=== PATIENT | female | born 1955 | race Caucasian/White ===

== ENCOUNTER 2016-05-29 20:48 | Emergency (ER) | payer MEDICARE, OTHER ==
[~2016-05-29] VITALS: Ht 167.6 cm; Wt 90.7 kg
[~2016-05-29 20:48] MED LIST: BUSP5TAB PO; CITA20TA19 GT; CLOP75TA2 PO; METO100T PO; ROSU10TA PO; TRAZ150T75 PO
[2016-05-29] MEDS ORDERED: ONDANSETRON HCL/PF 4 MG/2 ML VIAL ONE (21:15)
[2016-05-29] MEDS ORDERED: MORPHINE SULFATE INJ 4 MG/ML DISP.SYRIN ONE (21:15)
[2016-05-29] MEDS ORDERED: KETOROLAC TROMETHAMINE INJ 30 MG/ML VIAL ONE (21:15)
[2016-05-29] MEDS ORDERED: IV SET PRIMARY 1 EA INFUS.SET MC ONE (21:15)
[2016-05-29] MEDS ORDERED: IV NS 0.9% 1,000 ML ONE (21:15)
[2016-05-29 21:17] LABS: BASOPHILS # (AUTO) 0.1 /CMM (0.0-0.2); BASOPHILS % (AUTO) 0.7 % (0.0-2.0); DIFF TOTAL % 100 %; EOSINOPHILS # (AUTO) 0.1 /CMM (0.0-0.7); EOSINOPHILS % (AUTO) 1.2 % (0.0-6.0); HEMATOCRIT 37 % (33-45); HEMOGLOBIN 12.6 g/dL (11.5-14.8); LYMPHOCYTES # (AUTO) 3.3 /CMM (0.8-4.8); LYMPHOCYTES % (AUTO) 44.1 % (20.0-44.0); MEAN CORPUSCULAR HEMOGLOBIN 30 PG (26.0-33.0); MEAN CORPUSCULAR HGB CONC 34 g/dl (31.0-36.0); MEAN CORPUSCULAR VOLUME 86 fL (82-100); MONOCYTES # (AUTO) 0.6 /CMM (0.1-1.30); MONOCYTES % (AUTO) 8.3 % (2.0-12.0); NEUTROPHILS # (AUTO) 3.4 /CMM (1.8-8.9); NEUTROPHILS % (AUTO) 45.7 % (43.0-81.0); PLATELET COUNT (AUTO) 323 /CMM (150-450); RED BLOOD CELL COUNT(AUTO) 4.26 MIL/uL (4.0-5.2); WHITE BLOOD COUNT (AUTO) 7.5 K/uL (4.3-11.0)
[2016-05-29 21:19] LABS: KETONES,URINE Negative (NEGATIVE); LEUKOCYTE ESTERASE ,URINE Negative (NEGATIVE)
[2016-05-29 21:24] LABS: ADD UA MICROSCOPIC YES
[2016-05-29] MEDS ORDERED: KETOROLAC TROMETHAMINE INJ 30 MG/ML VIAL IV ONE (21:30)
[2016-05-29] MEDS ORDERED: IV NS 0.9% 1,000 ML BAG IV ONE (21:30)
[2016-05-29] MEDS ORDERED: ONDANSETRON HCL/PF 4 MG/2 ML VIAL IVP ONE (21:30)
[2016-05-29] MEDS ORDERED: MORPHINE SULFATE INJ 2 MG/ML DISP.SYRIN IV ONE (21:30)
[2016-05-29 21:34] LABS: ADD URINE CULTURE NO; WBC,URINE 0-2 /HPF (0-3)
[2016-05-29 21:38] LABS: LACTIC ACID 1.3 mmol/L (0.4-2.0)
[2016-05-29 21:46] LABS: ALBUMIN 3.9 g/dL (3.4-5.0); BILIRUBIN,DIRECT 0.1 mg/dL (0.0-0.2); BILIRUBIN,TOTAL 0.3 mg/dL (0.2-1.0); CREATININE 0.9 mg/dL (0.6-1.3); INDIRECT BILIRUBIN 0.2 mg/dL (0.0-1.1); POTASSIUM 4.3 mmol/L (3.5-5.1); TOTAL PROTEIN, SERUM 7.7 g/dL (6.4-8.2)
[2016-05-29 21:58] LABS: CALCIUM, SERUM 10.1 mg/dL (8.5-10.1)
[2016-05-29 22:54] VITALS: BP 137/73
== END 2016-05-29 23:01 | disposition home or self-care (01) ==
LOC: ER 20:48
DX: M54.9 Dorsalgia, unspecified (principal); I10 Essential (primary) hypertension; F41.9 Anxiety disorder, unspecified; F32.9 Major depressive disorder, single episode, unspecified; Z90.89 Acquired absence of other organs; Z90.49 Acquired absence of other specified parts of digestive tract; Z86.73 Personal history of transient ischemic attack (TIA), and cerebral infarction without residual deficits
CPT/HCPCS: 36415; 80048-TC; 80076-TC; 81000-TC; 83605-TC; 83690-TC; 85025-TC; A4606; J1885; J2270; J2405; J7030; Z7610

== ENCOUNTER 2016-10-10 14:45 | Emergency (ER) | payer MEDICARE, OTHER ==
[~2016-10-10] VITALS: Ht 165.1 cm; Wt 90.7 kg
--- NOTE | 2016-10-10 15:18 | NUR ---
PATIENT BIB RA C/O SEVERE HEADACHE, 12/31. PATIENTS BLOOD PRESSURE STABLE. BREATHING EVEN AND UNLABORED. MD AT BEDSIDE. SAFETY AND COMFORT MEASURES PROVIDED. AWAITING MD ORDERS.
[2016-10-10] MEDS ORDERED: METOCLOPRAMIDE HCL 10 MG/2 ML VIAL IV ONE (15:30)
[2016-10-10] MEDS ORDERED: METOCLOPRAMIDE HCL 10 MG/2 ML VIAL ONE (15:37)
--- NOTE | 2016-10-10 15:39 | NUR ---
NEW IV STARTED RIGHT HAND, 20 GAUGE. BLOOD DRAWN, SENT TO LAB.
[2016-10-10 15:44] LABS: BASOPHILS % (AUTO) 0.4 % (0.0-2.0); EOSINOPHILS # (AUTO) 0.1 /CMM (0.0-0.7); EOSINOPHILS % (AUTO) 1.5 % (0.0-6.0); HEMATOCRIT 37 % (33-45); HEMOGLOBIN 12.4 g/dL (11.5-14.8); LYMPHOCYTES # (AUTO) 2.3 /CMM (0.8-4.8); LYMPHOCYTES % (AUTO) 35.2 % (20.0-44.0); MEAN CORPUSCULAR HEMOGLOBIN 29 PG (26.0-33.0); MEAN CORPUSCULAR HGB CONC 33 g/dl (31.0-36.0); MEAN CORPUSCULAR VOLUME 88 fL (82-100); MONOCYTES # (AUTO) 0.4 /CMM (0.1-1.30); MONOCYTES % (AUTO) 6.3 % (2.0-12.0); NEUTROPHILS # (AUTO) 3.6 /CMM (1.8-8.9); NEUTROPHILS % (AUTO) 56.6 % (43.0-81.0); PLATELET COUNT (AUTO) 322 /CMM (150-450); RDW COEFFICIENT OF VARIATION 13.3 (11.5-15.0); RED BLOOD CELL COUNT(AUTO) 4.21 MIL/uL (4.0-5.2); WHITE BLOOD COUNT (AUTO) 6.4 K/uL (4.3-11.0)
--- NOTE | 2016-10-10 15:45 | NUR ---
PATIENT MEDICATED PER MD ORDERS. TAKEN TO CT SCAN VIA STRETCHER. REMAINS STABLE.
[2016-10-10 15:52] LABS: CALCIUM, SERUM 9.6 mg/dL (8.5-10.1); CARBON DIOXIDE 26 mmol/L (21-32); CHLORIDE 105 mmol/L (98-107); CREATININE 0.7 mg/dL (0.6-1.3); GLUCOSE 93 mg/dL (74-106); POTASSIUM 4.2 mmol/L (3.5-5.1); SODIUM SERUM 140 mmol/L (136-145); UREA NITROGEN, BLOOD 12 mg/dL (7-18)
[2016-10-10 15:58] LABS: ALANINE AMINOTRANSFERASE 24 U/L (12-78); ALBUMIN 3.6 g/dL (3.4-5.0); ALKALINE PHOSPHATASE 144 U/L (46-116); ASPARTATE AMINOTRANSFERASE 19 U/L (15-37); BILIRUBIN,DIRECT 0.1 mg/dL (0.0-0.2); BILIRUBIN,TOTAL 0.5 mg/dL (0.2-1.0); TOTAL PROTEIN, SERUM 7.4 g/dL (6.4-8.2)
[2016-10-10 16:03] LABS: TROPONIN I < 0.017 ng/mL (0.00-0.056)
[2016-10-10 17:11] VITALS: BP 150/73
--- NOTE | 2016-10-10 17:15 | NUR ---
Patient discharged to home in stable condition. Written and verbal after care instructions given. Patient verbalizes understanding of instruction. IV removed. Catheter intact and site benign. Pressure and 4x4 applied to site. No bleeding noted. ambulatory with steady gait. no further complaints.
== END 2016-10-10 17:15 | disposition home or self-care (01) ==
LOC: ER 14:46
DX: R51 Headache (principal); R42 Dizziness and giddiness; I10 Essential (primary) hypertension; G45.9 Transient cerebral ischemic attack, unspecified; F32.9 Major depressive disorder, single episode, unspecified; F41.9 Anxiety disorder, unspecified; Z90.49 Acquired absence of other specified parts of digestive tract
CPT/HCPCS: 36415; 70450-TC; 80048-TC; 80076-TC; 84484-TC; 85025-TC; A4606; J2765; Z7610

== ENCOUNTER 2017-01-03 20:45 | Emergency (ER) | payer MEDICARE, OTHER ==
[~2017-01-03] VITALS: Ht 154.9 cm; Wt 59.0 kg
--- NOTE | 2017-01-03 21:00 | NUR ---
TO BED 6 A 61 YO FEMALE BIBSELF C/O RIGHT BERMUDEZ PAIN X 5 HOURS S/P FALLING, -LOC. POSITIVE DISTAL CMS. VSS. NAD NOTED. BREATHING EVEN AND UNLABORED. NONDIAPHORETIC. SAFETY AND COMFORT MEASURES IN PLACE. AWAITING FOR ER MD DOVER.
--- NOTE | 2017-01-03 21:03 | NUR ---
DR GOODEN AT BEDSIDE TO EVAL.
[2017-01-03] MEDS ORDERED: HYDROCODONE/APAP 5/325MG 1 EACH TABLET ONE (21:09)
[2017-01-03] MEDS ORDERED: ONDANSETRON 4 MG TAB.RAPDIS ONE (21:09)
--- NOTE | 2017-01-03 21:11 | NUR ---
medicated patient as ordered by Dr Duran.
--- NOTE | 2017-01-03 21:13 | NUR ---
xr tech at bedside.
[2017-01-03] MEDS ORDERED: HYDROCODONE/APAP 5/325MG 1 EACH TABLET PO ONE (21:30)
[2017-01-03] MEDS ORDERED: ONDANSETRON 4 MG TAB.RAPDIS SL ONE (21:30)
--- NOTE | 2017-01-03 21:41 | NUR ---
Patient discharged to home in stable condition. Written and verbal after care instructions given. Patient verbalizes understanding of instruction. Patient was ambulatory with assistance of cane. She said she is going to be picked up by son. Instructed not to drive. No further complaints.
[2017-01-03 21:43] VITALS: BP 132/78
== END 2017-01-03 21:43 | disposition home or self-care (01) ==
LOC: ER 20:50
DX: S80.11XA Contusion of right lower leg, initial encounter (principal); F32.9 Major depressive disorder, single episode, unspecified; I10 Essential (primary) hypertension; Z90.49 Acquired absence of other specified parts of digestive tract; F41.9 Anxiety disorder, unspecified; Z86.73 Personal history of transient ischemic attack (TIA), and cerebral infarction without residual deficits; W01.0XXA Fall on same level from slipping, tripping and stumbling without subsequent striking against object, initial encounter; Y92.89 Other specified places as the place of occurrence of the external cause; Y93.89 Activity, other specified; Y99.8 Other external cause status
CPT/HCPCS: 73590; 99284; A4606; Q0162; Z7610

== ENCOUNTER 2017-04-16 19:42 | Emergency (ER) | payer MEDICARE, OTHER ==
[~2017-04-16] VITALS: Ht 167.6 cm; Wt 92.5 kg
[~2017-04-16 19:42] MED LIST changes: +CLOP75TA15 PO; -CLOP75TA2 PO
--- NOTE | 2017-04-16 20:13 | NUR ---
PT RECEIVED FROM HOME VIA SON C/O SIZZY/ HIGH BLOOD RPESSURE/ HEARING IMPAIRED "SOUNDS LIKE I AM MOVING IN THE AIR". NO SOB NOTED WITH NO PAIN. A/O X4 ABLE TO MAKE NEEDS KNOWN. WILL CONTINUE TO MONITOR FRO ANY CHNAGES
--- NOTE | 2017-04-16 20:26 | NUR ---
Acosta reinoso in ED - 04/16/17 at 2036 by KEN KATY LOZA AT [facility] FOR EVAL.
--- NOTE | 2017-04-16 20:29 | NUR ---
DR. LOZA AT BEDSIDE
--- NOTE | 2017-04-16 20:34 | NUR ---
DR. QIU AT BEDSIDE FOR EVAL.
--- NOTE | 2017-04-16 20:35 | NUR ---
EKG DONE AT BEDSIDE
--- NOTE | 2017-04-16 20:40 | NUR ---
LAB AT BEDSIDE FOR BLOOD DRAW.
[2017-04-16] MEDS ORDERED: ACETAMINOPHEN ES 500 MG TABLET ONE (20:57)
[2017-04-16] MEDS ORDERED: ACETAMINOPHEN 325 MG TABLET PO ONE (21:00)
--- NOTE | 2017-04-16 21:00 | NUR ---
RADIOLOGY AT BEDSIDE FOR CXR
[2017-04-16 21:10] LABS: BASOPHILS # (AUTO) 0.1 /CMM (0.0-0.2); BASOPHILS % (AUTO) 0.6 % (0.0-2.0); EOSINOPHILS # (AUTO) 0.1 /CMM (0.0-0.7); EOSINOPHILS % (AUTO) 0.7 % (0.0-6.0); HEMATOCRIT 40 % (33-45); HEMOGLOBIN 13.6 g/dL (11.5-14.8); LYMPHOCYTES # (AUTO) 3.6 /CMM (0.8-4.8); LYMPHOCYTES % (AUTO) 41.1 % (20.0-44.0); MEAN CORPUSCULAR HEMOGLOBIN 30 PG (26.0-33.0); MEAN CORPUSCULAR HGB CONC 34 g/dl (31.0-36.0); MEAN CORPUSCULAR VOLUME 88 fL (82-100); MONOCYTES # (AUTO) 0.8 /CMM (0.1-1.30); MONOCYTES % (AUTO) 8.7 % (2.0-12.0); NEUTROPHILS # (AUTO) 4.1 /CMM (1.8-8.9); NEUTROPHILS % (AUTO) 48.9 % (43.0-81.0); PLATELET COUNT (AUTO) 378 /CMM (150-450); RDW COEFFICIENT OF VARIATION 12.4 (11.5-15.0); RED BLOOD CELL COUNT(AUTO) 4.56 MIL/uL (4.0-5.2); WHITE BLOOD COUNT (AUTO) 8.7 K/uL (4.3-11.0)
--- NOTE | 2017-04-16 21:23 | NUR ---
FURNISHINGS CONSERVATOR BACK IN ROOM FOR 2ND ATTEMPT
[2017-04-16 21:25] LABS: CALCIUM, SERUM 10.7 mg/dL (8.5-10.1); CARBON DIOXIDE 28 mmol/L (21-32); CHLORIDE 104 mmol/L (98-107); CREATININE 0.7 mg/dL (0.6-1.3); GLUCOSE 105 mg/dL (74-106); POTASSIUM 4.3 mmol/L (3.5-5.1); SODIUM SERUM 140 mmol/L (136-145); UREA NITROGEN, BLOOD 20 mg/dL (7-18)
[2017-04-16 21:29] LABS: TROPONIN I < 0.017 ng/mL (0.00-0.056)
--- NOTE | 2017-04-16 21:54 | NUR ---
KATY LOZA AT BEDSIDE SPEAKING TO PT REGARDING RESULTS
[2017-04-16 22:08] LABS: INR 0.88 (0.87-1.13); PROTHROMBIN TIME 9.1 SECS (9.5-12.7)
--- NOTE | 2017-04-16 22:09 | NUR ---
RADIOLOGY AT BEDSIDE TO TAKE PT TO CT SCAN
--- NOTE | 2017-04-16 22:17 | NUR ---
PT BACK FROM CT SCAN
--- NOTE | 2017-04-17 00:03 | NUR ---
KATY LOZA AT BEDSIDE SPEAKING TO PT REGARDING RESULTS
--- NOTE | 2017-04-17 00:11 | NUR ---
D/C PAPERWORK SIGNED AND EXPLAINED.
[2017-04-17 00:12] VITALS: BP 132/71
== END 2017-04-17 00:13 | disposition home or self-care (01) ==
LOC: ER 19:43
DX: R42 Dizziness and giddiness (principal); I10 Essential (primary) hypertension; F41.9 Anxiety disorder, unspecified; F32.9 Major depressive disorder, single episode, unspecified; Z86.73 Personal history of transient ischemic attack (TIA), and cerebral infarction without residual deficits; Z90.49 Acquired absence of other specified parts of digestive tract; Z90.89 Acquired absence of other organs
CPT/HCPCS: 36415; 70450-TC; 71010-TC; 80048-TC; 84484-TC; 85025-TC; 85730-TC; A4606; Z7610

== ENCOUNTER 2017-08-08 12:50 | Emergency (ER) | payer MEDICARE, OTHER ==
[~2017-08-08] VITALS: Ht 170.2 cm; Wt 91.6 kg
[2017-08-08 12:55] VITALS: BP 122/67
[2017-08-08] MEDS ORDERED: DEXAMETHASONE SOD PHOSPHATE 10 MG/ML VIAL ONE (13:16)
[2017-08-08] MEDS ORDERED: TRAMADOL HCL 50 MG TABLET ONE (13:16)
[2017-08-08] MEDS ORDERED: hydrOXYzine 10 MG TABLET ONE (13:17)
[2017-08-08] MEDS ORDERED: ONDANSETRON 4 MG TAB.RAPDIS ONE (13:17)
[2017-08-08] MEDS: TRAMADOL HCL 50 MG TABLET PO ONE (13:27)
[2017-08-08] MEDS: hydrOXYzine 10 MG TABLET PO ONE (13:27)
[2017-08-08] MEDS: DEXAMETHASONE SOD PHOSPHATE 4 MG/ML VIAL IM ONE (13:27)
[2017-08-08] MEDS: ONDANSETRON 4 MG TAB.RAPDIS SL ONE (13:27)
== END 2017-08-08 13:43 | disposition home or self-care (01) ==
LOC: ER 12:52
DX: M54.32 Sciatica, left side (principal); I10 Essential (primary) hypertension; F41.9 Anxiety disorder, unspecified; F32.9 Major depressive disorder, single episode, unspecified; Z86.73 Personal history of transient ischemic attack (TIA), and cerebral infarction without residual deficits; Z90.49 Acquired absence of other specified parts of digestive tract; Z90.89 Acquired absence of other organs
CPT/HCPCS: A4606; J1100; Q0162; Q0177; Z7610

== ENCOUNTER 2017-08-21 15:23 | Inpatient (IN) | payer MEDICARE, OTHER ==
[~2017-08-21] VITALS: Ht 170.2 cm; Wt 95.3 kg
--- NOTE | 2017-08-21 15:23 | NUR ---
A/O4, PT IS COMPLAINING OF LEFT SIDED CHEST PAIN THAT STARTED 2 HRS AGO. PLACED ON CONT CARDIAC AND POX MONITORING. SKIN IS WARM AND NON DIAPHORETIC. RR EVEN AND UNLABORED. ALL NEEDS ARE ATTENDED, PENDING ER MD DOVER
[2017-08-21 15:59] LABS: BASOPHILS # (AUTO) 0.1 /CMM (0.0-0.2); BASOPHILS % (AUTO) 0.7 % (0.0-2.0); EOSINOPHILS % (AUTO) 3.9 % (0.0-6.0); HEMATOCRIT 40 % (33-45); HEMOGLOBIN 13.5 g/dL (11.5-14.8); LYMPHOCYTES # (AUTO) 2.5 /CMM (0.8-4.8); LYMPHOCYTES % (AUTO) 31.4 % (20.0-44.0); MEAN CORPUSCULAR HGB CONC 34 g/dl (31.0-36.0); MEAN CORPUSCULAR VOLUME 87 fL (82-100); MONOCYTES # (AUTO) 0.6 /CMM (0.1-1.30); NEUTROPHILS # (AUTO) 4.6 /CMM (1.8-8.9); PLATELET COUNT (AUTO) 352 /CMM (150-450); RDW COEFFICIENT OF VARIATION 12.2 (11.5-15.0); RED BLOOD CELL COUNT(AUTO) 4.57 MIL/uL (4.0-5.2); WHITE BLOOD COUNT (AUTO) 8.1 K/uL (4.3-11.0)
[2017-08-21] MEDS ORDERED: ASPIRIN 325 MG TABLET PO ONE (16:00)
[2017-08-21] MEDS ORDERED: NITROGLYCERIN PACKET 1 GM PACKET TOP ONE (16:00)
[2017-08-21] MEDS ORDERED: NITROGLYCERIN PACKET 1 GM PACKET ONE (16:04)
[2017-08-21] MEDS ORDERED: ASPIRIN 325 MG TABLET ONE (16:04)
[2017-08-21 16:09] LABS: CALCIUM, SERUM 10.4 mg/dL (8.5-10.1); CARBON DIOXIDE 27 mmol/L (21-32); CHLORIDE 103 mmol/L (98-107); CREATININE 0.8 mg/dL (0.6-1.3); GLUCOSE 120 mg/dL (74-106); POTASSIUM 3.9 mmol/L (3.5-5.1); SODIUM SERUM 138 mmol/L (136-145); UREA NITROGEN, BLOOD 9 mg/dL (7-18)
[2017-08-21 16:12] LABS: INR 0.88 (0.85-1.15)
[2017-08-21] MEDS ORDERED: EZET10TA14 PO (16:16)
[2017-08-21 16:18] LABS: TROPONIN I < 0.017 ng/mL (0.00-0.056)
[2017-08-21] MEDS ORDERED: IOHEXOL-350 100 ML VIAL IV ONE (17:53)
[2017-08-21] MEDS ORDERED: IV NS 0.9% 250 ML IV ONE (17:54)
[2017-08-21] MEDS ORDERED: IV NS 0.9% 1,000 ML IV PRN (18:32)
[2017-08-21] MEDS ORDERED: Z GUARD REMEDY 2 OZ OINT TP PRN (19:00)
[2017-08-21] MEDS ORDERED: ONDANSETRON HCL/PF 4 MG/2 ML VIAL IVP PRN (19:00)
[2017-08-21] MEDS ORDERED: NITROGLYCERIN 0.4 MG/TAB BOTTLE SL PRN (19:00)
[2017-08-21] MEDS ORDERED: LORAZEPAM 0.5 MG TABLET PO PRN (19:00)
[2017-08-21] MEDS ORDERED: ZOLPIDEM TARTRATE 5 MG TABLET PO PRN (19:00)
[2017-08-21] MEDS ORDERED: ACETAMINOPHEN 325 MG TABLET PO PRN (19:00)
[2017-08-21] MEDS ORDERED: MAG HYDROX/AL HYDROX/SIMETH 30 ML UDC PO PRN (19:00)
[2017-08-21] MEDS ORDERED: MAGNESIUM HYDROXIDE 30 ML UDC PO PRN (19:00)
[2017-08-21] MEDS ORDERED: HYDROCODONE/APAP 5/325MG 1 EACH TABLET PO PRN (19:00)
--- NOTE | 2017-08-21 19:00 | NUR ---
REPORT GIVEN TO MUNIR RAMIRES FOR MARY BETH.
--- NOTE | 2017-08-21 19:22 | NUR ---
REPORT GIVEN TO MUNIR NESBITT FOR [facility] TELE [id number]
[2017-08-21 20:00] VITALS: BP 125/73
--- NOTE | 2017-08-21 20:00 | NUR ---
ADMITTED A 61Y/O . PLEASANT FEMALE, A, OX4. BREATHING EVENLY. NO SOB. NAD. SKIN WARM AND DRY. ALL MEDICAL HX AND INFO WAS OBTAINED FROM THE PT. PT WAS PLACED ON THE LOGISTICS SUPERVISOR. VSS. W/ ONGOING C/O SHARP CP UPON DEEP BREATHING . NEEDS ATTENDED. BED LOW LOCKED. CALL LIGHT WITHIN REACH. WILL CONT TO MONITOR. AND WILL F/U W/ MD'S ORDERS.
[2017-08-21] MEDS: busPIRone 5 MG TABLET PO SCH (20:38)
[2017-08-21] MEDS: EZETIMIBE 10 MG TABLET PO SCH (20:38)
[2017-08-21] MEDS: CLOPIDOGREL BISULFATE 75 MG TABLET PO SCH (20:38)
[2017-08-21] MEDS: METOPROLOL TARTRATE 50 MG TABLET PO SCH (20:39)
[2017-08-21] MEDS ORDERED: TRAZODONE 50 MG TABLET PO PRN (22:00)
[2017-08-21] MEDS: FENTANYL PF 100MCG/2ML AMPUL IV PRN (22:45)
--- NOTE | 2017-08-21 22:45 | NUR ---
FENTANYL GIVEN ORDERED PER PT'S REQUEST FOR C/O CHEST/ BREAST PAIN UPON DEEP BREATHING. WILL CONT TO MONITOR
[2017-08-22] VITALS: BP 142/76
[2017-08-22 00:37] VITALS: BP 125/73
--- NOTE | 2017-08-22 00:37 | NUR ---
ATIVAN PO GIVEN ORDERED PER PT'S REQUEST FOR C/O ANXIETY AND INABILITY TO SLEEP. WILL CONT TO MONITOR
[2017-08-22 04:00] VITALS: BP 130/73
[2017-08-22 04:12] VITALS: BP 130/73
[2017-08-22] MEDS: FENTANYL PF 100MCG/2ML AMPUL IV PRN (06:00)
--- NOTE | 2017-08-22 06:10 | NUR ---
PT IN BED AWAKE AND ALERT. BREATHING EVENLY. NO SOB. W/ INTERMITTENT C/O CHEST PAIN, FENTANYL GIVEN ORDERED PER PT'S REQUEST. SR ON TELE MONITOR. NEEDS ATTENDED. CALL LIGHT WITHIN REACH. WILL CONT TO MONITOR
[2017-08-22 06:53] LABS: BASOPHILS % (AUTO) 0.6 % (0.0-2.0); EOSINOPHILS % (AUTO) 4.6 % (0.0-6.0); HEMATOCRIT 39 % (33-45); HEMOGLOBIN 13.1 g/dL (11.5-14.8); LYMPHOCYTES % (AUTO) 40.6 % (20.0-44.0); MEAN CORPUSCULAR HGB CONC 34 g/dl (31.0-36.0); MEAN CORPUSCULAR VOLUME 88 fL (82-100); MONOCYTES # (AUTO) 0.7 /CMM (0.1-1.30); MONOCYTES % (AUTO) 9.3 % (2.0-12.0); NEUTROPHILS # (AUTO) 3.3 /CMM (1.8-8.9); NEUTROPHILS % (AUTO) 44.9 % (43.0-81.0); PLATELET COUNT (AUTO) 316 /CMM (150-450); RDW COEFFICIENT OF VARIATION 12.7 (11.5-15.0); RED BLOOD CELL COUNT(AUTO) 4.41 MIL/uL (4.0-5.2); WHITE BLOOD COUNT (AUTO) 7.4 K/uL (4.3-11.0)
--- NOTE | 2017-08-22 07:31 | NUR ---
YARD INSPECTOR NOTES PATIENT RECEIVED RESTING INSIDE ROOM, AWAKE, ALERT AND ORIENTED X 4. ABLE TO MAKE NEEDS KNOWN AND FOLLOW SIMPLE INSTRUCTIONS. BREATHING EVEN AND UNLABORED. NO SOB OR ACUTE DISTRESS NOTED AT THIS TIME. NO C/O PAIN OR DISCOMFORT AT THIS TIME. IV SITE ON LEFT AC INTACT AND PATENT, NO BLEEDING OR SWELLING NOTED. WILL CONTINUE TO MONITOR. BILATERAL UPPER SIDE RAILS UP AND LOCKED. CALL LIGHT WITHIN EASY REACH
[2017-08-22 07:37] LABS: CALCIUM, SERUM 9.6 mg/dL (8.5-10.1); CREATININE 0.7 mg/dL (0.6-1.3); MAGNESIUM 2.1 mg/dL (1.8-2.4); PHOSPHORUS 3.6 mg/dL (2.5-4.9); POTASSIUM 4.4 mmol/L (3.5-5.1)
[2017-08-22 08:00] VITALS: BP 130/74
--- NOTE | 2017-08-22 08:19 | NUR ---
MEDART OPERATOR NOTES PATIENT SEEN AND EXAMINED BY DR. HERNANDEZ. WITH NEW ORDER FOR NM MYOCARDIAL STRESS TEST. VERIFIED THAT PATIENT HAS BEEN NPO SINCE MIDNIGHT TODAY. VERIFIED WITH DR. HERNANDEZ AND GAVE OK FOR PATIENT TO HAVE PO MEDICATIONS. PATIENT MADE AWARE AND VERBALIZED UNDERSTANDING. VERIFIED INFORMED CONSENT OBTAINED BY MD FROM PATIENT. WILL CONTINUE TO MONITOR
[2017-08-22 08:49] VITALS: BP 130/74
[2017-08-22] MEDS: CLOPIDOGREL BISULFATE 75 MG TABLET PO SCH (08:49)
[2017-08-22] MEDS: METOPROLOL TARTRATE 50 MG TABLET PO SCH (08:49)
[2017-08-22] MEDS: EZETIMIBE 10 MG TABLET PO SCH (08:49)
[2017-08-22] MEDS: busPIRone 5 MG TABLET PO SCH (08:50)
[2017-08-22] MEDS ORDERED: ATORVASTATIN 10 MG TABLET PO SCH (09:00)
[2017-08-22] MEDS ORDERED: REGADENOSON 0.4 MG/5 ML DISP.SYRIN IVP ONE (10:00)
--- NOTE | 2017-08-22 15:18 | NUR ---
MS RN NOTES PATIENT SEEN BY RT, TUBING CHANGED. CONTINUE TO NOTE WITH SCANT BLEEDING ON TRACH, NO ACTIVE BLEEDING NOTED. NO DISTRESS NOTED AT THIS TIME. WILL CONTINUE TO MONITOR
--- NOTE | 2017-08-22 16:22 | NUR ---
MS RN NOTES NM MYOCARDIAL STRESS TEST READY, RELAYED TO DR. FRAGA AND GAVE OK FOR PATIENT TO BE DISCHARGED HOME. PATIENT AWARE AND VERBALIZED UNDERSTANDING. WILL CONTINUE TO MONITOR
--- NOTE | 2017-08-22 16:49 | NUR ---
MS RN NOTES PATIENT FOR DISCHARGE HOME TODAY. DISCHARGE INSTRUCTIONS AND EDUCATION PROVIDED TO PATIENT AND VERBALIZED UNDERSTANDING. IV REMOVED WITH MINIMAL BLEEDING NOTED, PRESSURE DRESSING PLACED. NO NEW SKIN BREAKDOWN NOTED. PATIENT AFEBRILE, SKIN DRY AND WARM TO TOUCH. NO CHANGES IN LOC NOTED, ALL BELONGINGS COMPLETE, NO REPORT OF MISSING INVENTORY. PATIENT LEFT UNIT AMBULATORY, ESCORTED BY RN RELIEF CHARGE OUT OF HOSPITAL. NO EPISODE OF FALL OR INJURY. PATIENT LEFT HOSPITAL AT 1645, LEFT VIA UBER. MD AWARE OF DISCHARGE.
== END 2017-08-22 16:46 | disposition home or self-care (01) | DRG 206 ==
LOC: ER 15:26 → TELE 18:26 → MED 08-22 09:02
PROVIDERS: ADMIT Internal Medicine; ATTEND Internal Medicine
DX: M94.0 Chondrocostal junction syndrome [Tietze] (principal); E66.01 Morbid (severe) obesity due to excess calories; I27.20 Pulmonary hypertension, unspecified; I25.10 Atherosclerotic heart disease of native coronary artery without angina pectoris; D17.79 Benign lipomatous neoplasm of other sites; E66.9 Obesity, unspecified; E78.5 Hyperlipidemia, unspecified; I10 Essential (primary) hypertension; Z68.32 Body mass index [BMI] 32.0-32.9, adult; Z86.73 Personal history of transient ischemic attack (TIA), and cerebral infarction without residual deficits; K21.9 Gastro-esophageal reflux disease without esophagitis; F41.9 Anxiety disorder, unspecified; Z79.899 Other long term (current) drug therapy; I70.0 Atherosclerosis of aorta; F32.9 Major depressive disorder, single episode, unspecified
CPT/HCPCS: 36415; 71045-TC; 80048-TC; 80061-TC; 83735-TC; 84100-TC; 84484-TC; 85025-TC; 85378-TC; 85730-TC; 93307-TC; A4606; A9502; J2785; J3010; J7030; J7050; Q9967; Z7610

== ENCOUNTER 2017-10-15 17:58 | Emergency (ER) | payer MEDICARE, OTHER ==
[~2017-10-15] VITALS: Ht 167.6 cm; Wt 93.0 kg
[~2017-10-15 17:58] MED LIST changes: -CITA20TA19 GT; +EZET10TA14 PO
[2017-10-15 18:05] VITALS: BP 136/76
== END 2017-10-15 18:47 | disposition home or self-care (01) ==
LOC: ER 18:00
DX: M54.42 Lumbago with sciatica, left side (principal); L02.224 Furuncle of groin; I10 Essential (primary) hypertension; F32.9 Major depressive disorder, single episode, unspecified; F41.9 Anxiety disorder, unspecified; Z86.73 Personal history of transient ischemic attack (TIA), and cerebral infarction without residual deficits; Z90.49 Acquired absence of other specified parts of digestive tract; Z90.89 Acquired absence of other organs
CPT/HCPCS: 99283; A4606; Z7610

== ENCOUNTER 2017-12-09 13:39 | Emergency (ER) | payer MEDICARE, OTHER ==
[~2017-12-09] VITALS: Ht 167.6 cm; Wt 94.3 kg
[2017-12-09 13:39] VITALS: BP 161/91
--- NOTE | 2017-12-09 13:48 | NUR ---
PT WALKED INTO EMERGENCY ROOM FOR LOWER BACK PAIN HAS A HISTORY OF BACK SURGEY HAD EPIDURAL SHOT 4 DAYS AGO
[2017-12-09] MEDS ORDERED: MORPHINE SULFATE INJ 4 MG/ML DISP.SYRIN ONE (13:59)
[2017-12-09] MEDS ORDERED: KETOROLAC TROMETHAMINE INJ 30 MG/ML VIAL ONE (13:59)
[2017-12-09] MEDS ORDERED: MORPHINE SULFATE INJ 2 MG/ML DISP.SYRIN IM ONE (14:00)
[2017-12-09] MEDS ORDERED: ONDANSETRON 4 MG TAB.RAPDIS ONE (14:00)
[2017-12-09] MEDS ORDERED: KETOROLAC TROMETHAMINE INJ 60 MG/2 ML VIAL IM ONE (14:00)
[2017-12-09] MEDS ORDERED: ONDANSETRON 4 MG TAB.RAPDIS SL ONE (14:00)
--- NOTE | 2017-12-09 14:10 | NUR ---
PT TRANSPORTED TO EMERGENCY ROOM BY SON WHO IS WAITING FOR PT TO DEPART
[2017-12-10] MEDS ORDERED: LIDOCAINE 100MG/5ML DISP SYR ONE (02:57)
== END 2017-12-09 13:59 | disposition home or self-care (01) ==
LOC: ER 13:40
DX: G89.29 Other chronic pain (principal); M54.42 Lumbago with sciatica, left side; I10 Essential (primary) hypertension; R51 Headache; F41.9 Anxiety disorder, unspecified; F32.9 Major depressive disorder, single episode, unspecified; E78.00 Pure hypercholesterolemia, unspecified; Z90.49 Acquired absence of other specified parts of digestive tract; Z86.73 Personal history of transient ischemic attack (TIA), and cerebral infarction without residual deficits
CPT/HCPCS: 96372 ×2; 99284; A4606; J1885; J2270; Q0162; J2001; Z7610

== ENCOUNTER 2017-12-24 06:20 | Emergency (ER) | payer MEDICARE, OTHER ==
[~2017-12-24] VITALS: Ht 170.2 cm; Wt 97.5 kg
--- NOTE | 2017-12-24 06:24 | NUR ---
PT AMBULATORY TO ER BED 1. BIBSELF C/O LOWER BACK PAIN RADIATING DOWN LEFT LEG. HX OF SLIPPED DISK. PT PLACED ON GEOTECHNICAL FIELD TECHNICIAN. VSS/RESP EVEN UNLABORED/NAD NOTED/SKIN WARM AND DRY/AFEBRILE/DENIES N-V-D/AOX4. AWAITNG MD DOVER.
--- NOTE | 2017-12-24 06:30 | NUR ---
AT BEDSIDE FOR EVAL.
[2017-12-24] MEDS ORDERED: KETOROLAC TROMETHAMINE INJ 30 MG/ML VIAL ONE (06:39)
[2017-12-24] MEDS ORDERED: MORPHINE SULFATE INJ 4 MG/ML DISP.SYRIN ONE (06:39)
[2017-12-24] MEDS ORDERED: KETOROLAC TROMETHAMINE INJ 60 MG/2 ML VIAL IM ONE (07:00)
[2017-12-24] MEDS ORDERED: MORPHINE SULFATE INJ 2 MG/ML DISP.SYRIN IM ONE (07:00)
--- NOTE | 2017-12-24 07:02 | NUR ---
Patient discharged with family to home in stable condition. Written and verbal after care instructions given, patient instructed not to drive. Patient verbalizes understanding of instruction. Patient is awake and alert to self, day, and place. Patient ambulatory with a steady gait.
[2017-12-24 07:04] VITALS: BP 154/84
== END 2017-12-24 07:05 | disposition home or self-care (01) ==
LOC: ER 06:20
DX: M54.42 Lumbago with sciatica, left side (principal); G89.29 Other chronic pain; R51 Headache; I10 Essential (primary) hypertension; F32.9 Major depressive disorder, single episode, unspecified; F41.9 Anxiety disorder, unspecified; Z90.49 Acquired absence of other specified parts of digestive tract; Z86.73 Personal history of transient ischemic attack (TIA), and cerebral infarction without residual deficits; Z85.841 Personal history of malignant neoplasm of brain
CPT/HCPCS: 96372 ×2; 99284; A4606; J1885; J2270; Z7610

== ENCOUNTER 2018-01-25 20:25 | Emergency (ER) | payer MEDICARE, OTHER ==
[~2018-01-25] VITALS: Ht 165.1 cm; Wt 95.3 kg
[2018-01-25 20:43] VITALS: BP 155/88
--- NOTE | 2018-01-25 20:49 | NUR ---
PT HAS A LARGE ABSCESS TO THE RIGHT UPPER THIGH NEAR THE GROIN THAT STARTED 2 DAYS AGO. DENIES FEVER CHILLS NAUSEA VOMITING. THE AREA IS LARGE AT 5IN ROUND AND FIRM ON PALPATION. IT HAS A SMALL AREA TO THE CENTER THAT IS DRY WITH NO DRAINAGE AND FLAKING. PAINFUL AND HOT TO TOUCH.
[2018-01-25] MEDS ORDERED: HYDROCODONE/APAP 5/325MG 1 EACH TABLET PO ONE (21:00)
[2018-01-25] MEDS ORDERED: CEPHALEXIN MONOHYDRATE 500 MG CAPSULE PO ONE ×2 (21:10→21:30)
[2018-01-25] MEDS ORDERED: SULFAMETH/TRIMETH 800/160 MG 1 UDTAB TABLET PO ONE ×2 (21:11→21:30)
[2018-01-25] MEDS ORDERED: HYDROCODONE/APAP 5/325MG 1 EACH TABLET ONE (21:13)
== END 2018-01-25 21:17 | disposition home or self-care (01) ==
LOC: ER 20:29
DX: L03.115 Cellulitis of right lower limb (principal); I10 Essential (primary) hypertension; E78.5 Hyperlipidemia, unspecified; E78.00 Pure hypercholesterolemia, unspecified; M54.5 Low back pain; Z79.02 Long term (current) use of antithrombotics/antiplatelets; Z90.89 Acquired absence of other organs; Z86.73 Personal history of transient ischemic attack (TIA), and cerebral infarction without residual deficits
CPT/HCPCS: 99284; A4606; Z7610

== ENCOUNTER 2018-02-07 12:53 | Emergency (ER) | payer MEDICARE, OTHER ==
[~2018-02-07] VITALS: Ht 165.1 cm; Wt 92.1 kg
--- NOTE | 2018-02-07 13:00 | NUR ---
PT BIB SELF C/O RUQ ABD PAIN RADIATING TO BACK. S/P BACK SURGERY (SPINAL FUSION) 1 MONTH AGO. DENIES N/V/D. DENIES URINARY SYMPTOMS. ABD SOFT NONTENDER. RESP EVEN UNLABORED. AMBULATORY STEADY GAIT. IN ER BED.
[2018-02-07 13:26] LABS: BASOPHILS # (AUTO) 0.1 /CMM (0.0-0.2); EOSINOPHILS % (AUTO) 2.1 % (0.0-6.0); HEMATOCRIT 38 % (33-45); HEMOGLOBIN 12.6 g/dL (11.5-14.8); LYMPHOCYTES # (AUTO) 2.2 /CMM (0.8-4.8); LYMPHOCYTES % (AUTO) 41.6 % (20.0-44.0); MEAN CORPUSCULAR HGB CONC 33 g/dl (31.0-36.0); MEAN CORPUSCULAR VOLUME 88 fL (82-100); MONOCYTES # (AUTO) 0.3 /CMM (0.1-1.30); MONOCYTES % (AUTO) 6.3 % (2.0-12.0); NEUTROPHILS # (AUTO) 2.7 /CMM (1.8-8.9); PLATELET COUNT (AUTO) 410 /CMM (150-450); RDW COEFFICIENT OF VARIATION 12.3 (11.5-15.0); RED BLOOD CELL COUNT(AUTO) 4.33 MIL/uL (4.0-5.2); WHITE BLOOD COUNT (AUTO) 5.4 K/uL (4.3-11.0)
[2018-02-07 13:28] LABS: APPEARANCE,URINE Slightly Cloudy (CLEAR); BILIRUBIN,URINE Negative (NEGATIVE); BLOOD, URINE Moderate Ery/uL (NEGATIVE); COLOR,URINE Yellow (YELLOW); KETONES,URINE Negative (NEGATIVE); LEUKOCYTE ESTERASE ,URINE Trace (NEGATIVE); NITRITE, URINE Negative (NEGATIVE); PROTEIN,URINE Negative (NEGATIVE); UGLUCOSE Negative (NEGATIVE); UROBILINOGEN,URINE 0.2 EU/dL (0.2)
[2018-02-07] MEDS ORDERED: ONDANSETRON HCL/PF 4 MG/2 ML VIAL IV ONE (13:30)
[2018-02-07] MEDS ORDERED: MORPHINE SULFATE INJ 2 MG/ML DISP.SYRIN IV ONE (13:30)
[2018-02-07 13:33] LABS: BACTERIA,URINE 1+ /HPF (None Seen); SQUAMOUS EPITHELIAL CELL,UR Few /HPF (None Seen)
[2018-02-07] MEDS ORDERED: ONDANSETRON HCL/PF 4 MG/2 ML VIAL ONE (13:34)
[2018-02-07] MEDS ORDERED: MORPHINE SULFATE INJ 4 MG/ML DISP.SYRIN ONE (13:34)
[2018-02-07 13:37] LABS: CARBON DIOXIDE 24 mmol/L (21-32); CHLORIDE 106 mmol/L (98-107); CREATININE 0.7 mg/dL (0.6-1.3); GLUCOSE 92 mg/dL (74-106); POTASSIUM 3.9 mmol/L (3.5-5.1); SODIUM SERUM 140 mmol/L (136-145); UREA NITROGEN, BLOOD 8 mg/dL (7-18)
[2018-02-07 13:43] LABS: ALANINE AMINOTRANSFERASE 35 U/L (12-78); ALBUMIN 3.9 g/dL (3.4-5.0); ALKALINE PHOSPHATASE 129 U/L (46-116); ASPARTATE AMINOTRANSFERASE 22 U/L (15-37); BILIRUBIN,TOTAL 0.4 mg/dL (0.2-1.0); LIPASE 105 U/L (73-393); TOTAL PROTEIN, SERUM 7.6 g/dL (6.4-8.2)
[2018-02-07 13:45] LABS: TROPONIN I < 0.017 ng/mL (0.00-0.056)
--- NOTE | 2018-02-07 15:15 | NUR ---
IV removed. Catheter intact and site benign. Pressure and 4x4 applied to site. No bleeding noted.
--- NOTE | 2018-02-07 15:43 | NUR ---
Patient discharged to home in stable condition. Written and verbal after care instructions given. Patient verbalizes understanding of instruction. AMBULATORY STEADY GAIT
[2018-02-07 15:44] VITALS: BP 115/80
== END 2018-02-07 15:47 | disposition home or self-care (01) ==
LOC: ER 12:56
DX: R10.11 Right upper quadrant pain (principal); I10 Essential (primary) hypertension; E78.5 Hyperlipidemia, unspecified; Z86.73 Personal history of transient ischemic attack (TIA), and cerebral infarction without residual deficits; Z90.49 Acquired absence of other specified parts of digestive tract; E78.00 Pure hypercholesterolemia, unspecified; Z90.89 Acquired absence of other organs
CPT/HCPCS: 36415; 74176; 76705; 80048; 80076; 81001; 83690; 84484; 85025; 87086; 96374; 96375; 99285; J2270; J2405; 81000-TC; A4606; Z7610

== ENCOUNTER 2018-07-19 18:18 | Emergency (ER) | payer MEDICARE, OTHER ==
[~2018-07-19] VITALS: Ht 165.1 cm; Wt 90.7 kg
[~2018-07-19 18:18] MED LIST changes: -ROSU10TA PO; +ROSU10TA2 PO
--- NOTE | 2018-07-19 18:18 | NUR ---
BIB SELF W C/O R LOWER ABDOMINAL PAIN RADIATING TO BACK AREA SINCE YESTERDAY. ALSO C/O BURNING SENSATION DURING URINATION. TO ER BED 1, HOOKED TO MONITOR, PROVIDED W WARM BLANKET, AWAITING MD DOVER
--- NOTE | 2018-07-19 18:55 | NUR ---
DR QIU AT BEDSIDE FOR EVAL.
[2018-07-19 19:31] LABS: APPEARANCE,URINE Clear (CLEAR); BILIRUBIN,URINE Negative (NEGATIVE); BLOOD, URINE Moderate Ery/uL (NEGATIVE); COLOR,URINE Yellow (YELLOW); KETONES,URINE Negative (NEGATIVE); LEUKOCYTE ESTERASE ,URINE Large (NEGATIVE); NITRITE, URINE Negative (NEGATIVE); PROTEIN,URINE 30 mg/dl (NEGATIVE); UGLUCOSE Negative (NEGATIVE); UROBILINOGEN,URINE 0.2 EU/dL (0.2)
--- NOTE | 2018-07-19 19:32 | NUR ---
URINE SAMPLE SENT TO LAB
--- NOTE | 2018-07-19 19:42 | NUR ---
REPORT GIVEN TO ED RN FOR MARY BETH
[2018-07-19 19:43] LABS: RBC,URINE 21-50 /HPF (0-2)
[2018-07-19 19:44] LABS: BACTERIA,URINE Moderate /HPF (None Seen); SQUAMOUS EPITHELIAL CELL,UR Few /HPF (None Seen); WBC,URINE 51-80 /HPF (0-3)
[2018-07-19] MEDS ORDERED: CEPHALEXIN MONOHYDRATE 500 MG CAPSULE PO ONE ×2 (19:52→20:00)
[2018-07-19] MEDS ORDERED: PHENAZOPYRIDINE HCL 200 MG TABLET ONE (19:53)
[2018-07-19] MEDS ORDERED: ONDANSETRON 4 MG TAB.RAPDIS ONE (19:55)
[2018-07-19] MEDS ORDERED: PHENAZOPYRIDINE HCL 200 MG TABLET PO ONE (20:00)
[2018-07-19] MEDS ORDERED: ONDANSETRON 4 MG TAB.RAPDIS SL ONE (20:00)
--- NOTE | 2018-07-19 20:08 | NUR ---
Patient discharged to home in stable condition. Written and verbal after care instructions given. Patient verbalizes understanding of instruction. ambulatory with a steady gait
[2018-07-19 20:09] VITALS: BP 137/72
== END 2018-07-19 20:10 | disposition home or self-care (01) ==
LOC: ER 18:18
DX: N39.0 Urinary tract infection, site not specified (principal); I10 Essential (primary) hypertension; F32.9 Major depressive disorder, single episode, unspecified; F41.9 Anxiety disorder, unspecified; M54.5 Low back pain; Z86.73 Personal history of transient ischemic attack (TIA), and cerebral infarction without residual deficits; Z90.49 Acquired absence of other specified parts of digestive tract; Z98.890 Other specified postprocedural states
CPT/HCPCS: 81001; 87077; 87086; 87186; 99284; Q0162; 81000-TC

== ENCOUNTER 2022-05-01 13:31 | Emergency (ER) | payer MEDICARE, OTHER ==
[~2022-05-01] VITALS: Ht 167.6 cm; Wt 90.7 kg
[2022-05-01 13:31] VITALS: BP 135/82
[~2022-05-01 13:31] MED LIST changes: -EZET10TA14 PO; +EZET10TA16 PO
--- NOTE | 2022-05-01 13:31 | NUR ---
BIBS C/O R 3RD DIGIT FINGER PAIN, WENT TO GET A MANICURE BEFORE 04/16 AND NOTICED REDNESS AND SWELLING ON ABX SINCE 04/28 AND NO IMPROVEMENT
--- NOTE | 2022-05-01 14:24 | NUR ---
X RAY AT PT'S SIDE
--- NOTE | 2022-05-01 15:31 | NUR ---
Patient discharged to home in stable condition. Written and verbal after care instructions given. Patient verbalizes understanding of instruction.
== END 2022-05-01 15:31 | disposition home or self-care (01) ==
LOC: ER 13:36
DX: L03.011 Cellulitis of right finger (principal); M79.644 Pain in right finger(s); Z86.73 Personal history of transient ischemic attack (TIA), and cerebral infarction without residual deficits; I10 Essential (primary) hypertension; E11.9 Type 2 diabetes mellitus without complications; Z79.899 Other long term (current) drug therapy
CPT/HCPCS: 73140-TC

== ENCOUNTER 2023-02-05 14:56 | Emergency (ER) | payer MEDICARE, OTHER ==
[~2023-02-05] VITALS: Ht 167.6 cm; Wt 91.2 kg
[2023-02-05] MEDS ORDERED: CODE1CAP32 PO (16:36)
[2023-02-05 17:20] VITALS: BP 151/75; TEMP 98.7; O2SAT 100
== END 2023-02-05 17:20 | disposition home or self-care (01) ==
LOC: ER 15:10
DX: R51.9 Headache, unspecified (principal); I10 Essential (primary) hypertension; Z98.890 Other specified postprocedural states; Z79.899 Other long term (current) drug therapy

== ENCOUNTER 2023-04-23 09:27 | Emergency (ER) | payer MEDICARE, OTHER ==
[~2023-04-23] VITALS: Ht 167.6 cm; Wt 90.7 kg
[~2023-04-23 09:27] MED LIST changes: +CODE1CAP32 PO
[2023-04-23] MEDS ORDERED: BENZ-13 PO (12:48)
[2023-04-23 13:08] VITALS: BP 130/75; TEMP 98.9; O2SAT 97
== END 2023-04-23 13:00 | disposition home or self-care (01) ==
LOC: ER 09:27
DX: U07.1 COVID-19 (principal); R05.9 Cough, unspecified; I10 Essential (primary) hypertension
CPT/HCPCS: 71045-TC

== ENCOUNTER 2023-10-16 09:05 | Emergency (ER) | payer MEDICARE, OTHER ==
[~2023-10-16] VITALS: Ht 165.1 cm; Wt 90.7 kg
[~2023-10-16 09:05] MED LIST changes: +BENZ-13 PO
[2023-10-16] MEDS ORDERED: BENZ-13 PO (09:55)
[2023-10-16] MEDS ORDERED: ALBU18HF2 INH (09:55)
[2023-10-16 10:03] VITALS: BP 158/81; TEMP 98.6; O2SAT 97
== END 2023-10-16 10:04 | disposition home or self-care (01) ==
LOC: ER 09:08
DX: J20.9 Acute bronchitis, unspecified (principal); I10 Essential (primary) hypertension; Z98.890 Other specified postprocedural states; Z79.899 Other long term (current) drug therapy
CPT/HCPCS: 71045-TC

== ENCOUNTER 2024-02-09 10:35 | Emergency (ER) | payer MEDICARE, OTHER ==
[~2024-02-09] VITALS: Ht 165.1 cm; Wt 90.7 kg
[~2024-02-09 10:35] MED LIST changes: +ALBU18HF2 INH
[2024-02-09 10:49] VITALS: BP 137/80; TEMP 97.1
[2024-02-09 11:00] VITALS: O2SAT 99
[2024-02-09] MEDS ORDERED: IBUPROFEN 600 MG TABLET ONE (11:55)
[2024-02-09] MEDS: IBUPROFEN 600 MG TABLET PO ONE (11:57)
== END 2024-02-09 12:23 | disposition home or self-care (01) ==
LOC: ER 10:48
DX: M25.531 Pain in right wrist (principal); I10 Essential (primary) hypertension; Z79.899 Other long term (current) drug therapy; Z86.73 Personal history of transient ischemic attack (TIA), and cerebral infarction without residual deficits; Z87.39 Personal history of other diseases of the musculoskeletal system and connective tissue; Z87.2 Personal history of diseases of the skin and subcutaneous tissue
CPT/HCPCS: 73110

== ENCOUNTER 2024-09-14 19:18 | Inpatient (IN) | payer MEDICARE, OTHER ==
[~2024-09-14] VITALS: Ht 162.6 cm; Wt 108.4 kg
[2024-09-14] MEDS ORDERED: IOHEXOL-350 100 ML VIAL IV ONE (20:02)
[2024-09-14] MEDS ORDERED: IV NS 0.9% 250 ML IV ONE (20:02)
[2024-09-14] MEDS ORDERED: methylPREDNISolone SOD SUCC 125 MG/2ML VIAL ONE (20:24)
[2024-09-14] MEDS: methylPREDNISolone SOD SUCC 125 MG/2ML VIAL IV ONE (20:33)
[2024-09-14] MEDS ORDERED: diphenhydrAMINE HCL 50 MG/ML VIAL ONE (20:36)
[2024-09-14] MEDS: diphenhydrAMINE HCL 50 MG/ML VIAL IV ONE (20:38)
[2024-09-14] MEDS ORDERED: FAMOTIDINE/PF INJ 20 MG/2 ML VIAL IV ONE (20:47)
[2024-09-14 20:48] LABS: BASOPHILS % (AUTO) 0.1 % (0.0-2.0); CALCIUM, SERUM 9.1 mg/dL (8.5-10.1); CREATININE 0.8 mg/dL (0.6-1.3); EOSINOPHILS % (AUTO) 0.2 % (0.0-6.0); HEMATOCRIT 49 % (33-45); HEMOGLOBIN 15.6 g/dL (11.5-14.8); LYMPHOCYTES # (AUTO) 4.4 K/uL (0.8-4.8); LYMPHOCYTES % (AUTO) 77.2 % (20.0-44.0); MEAN CORPUSCULAR HEMOGLOBIN 29 PG (26.0-33.0); MEAN CORPUSCULAR HGB CONC 32 g/dl (31.0-36.0); MEAN CORPUSCULAR VOLUME 91 fL (82-100); MONOCYTES # (AUTO) 0.2 K/uL (0.1-1.30); MONOCYTES % (AUTO) 3.4 % (2.0-12.0); NEUTROPHILS # (AUTO) 1.1 K/uL (1.8-8.9); NEUTROPHILS % (AUTO) 19.1 % (43.0-81.0); PLATELET COUNT (AUTO) 318 K/uL (150-450); POTASSIUM 4.5 mmol/L (3.5-5.1); RED BLOOD CELL COUNT(AUTO) 5.33 MIL/uL (4.0-5.2); RED CELL DISTRIBUTION WIDTH 13.2 % (11.5-15.0); WHITE BLOOD COUNT (AUTO) 5.7 K/uL (4.3-11.0)
[2024-09-14] MEDS: FAMOTIDINE/PF INJ 20 MG/2 ML VIAL IV ONE (20:49)
[2024-09-14 21:14] LABS: INR 0.98 (0.91-1.10); PARTIAL THROMBOPLASTIN TIME 24.2 SEC (24.3-34.3); PROTHROMBIN TIME 10.4 SECS (9.2-11.1)
[2024-09-14 22:23] LABS: APPEARANCE,URINE CLEAR (CLEAR); BILIRUBIN,URINE NEGATIVE (NEGATIVE); BLOOD, URINE 1+ Ery/uL (NEGATIVE); COLOR,URINE YELLOW (YELLOW); KETONES,URINE NEGATIVE (NEGATIVE); LEUKOCYTE ESTERASE ,URINE NEGATIVE (NEGATIVE); NITRITE, URINE NEGATIVE (NEGATIVE); PROTEIN,URINE NEGATIVE (NEGATIVE); UGLUCOSE NEGATIVE (NEGATIVE); UROBILINOGEN,URINE 0.2 EU/dL (0.2)
[2024-09-14] MEDS ORDERED: ENOXAPARIN SODIUM 40 MG/0.4 ML DISP.SYRIN SQ SCH (22:30)
[2024-09-14 22:45] LABS: ADD URINE CULTURE YES; BACTERIA,URINE Moderate /HPF (None Seen); SQUAMOUS EPITHELIAL CELL,UR Moderate /HPF (None Seen)
[2024-09-14 23:05] LABS: LYMPHOCYTES % (MANUAL) 78 % (16-48); MONOCYTES % (MANUAL) 2 % (0-11.0); NEUTROPHILS % (MANUAL) 20 (42-76); PLATELET ESTIMATE ADEQUATE
[2024-09-14 23:08] LABS: TEAR DROP CELLS FEW
[2024-09-14] MEDS: ASPIRIN EC 325 MG TABLET.DR PO ONE (23:28)
[2024-09-14] MEDS ORDERED: ALBUTEROL FS 2.5 MG/3 ML VIAL.NEB NEB PRN (23:45)
[2024-09-14] MEDS ORDERED: TRAZODONE 50 MG TABLET PO PRN (23:45)
[2024-09-15] VITALS: BP 117/57; TEMP 98.6; O2SAT 94
[2024-09-15] MEDS ORDERED: BENZONATATE 100 MG CAPSULE PO PRN ×2
[2024-09-15] MEDS ORDERED: CAFFEIN PO PRN
[2024-09-15] MEDS ORDERED: BUTALBITAL PO PRN
[2024-09-15] MEDS ORDERED: CODEINE PO PRN
[2024-09-15] MEDS ORDERED: ASA PO PRN
[2024-09-15] MEDS ORDERED: diphenhydrAMINE HCL ELIX 25 MG/10 ML UDC PO PRN
[2024-09-15 04:00] VITALS: BP 113/55; TEMP 98.2; O2SAT 96
[2024-09-15] MEDS: methylPREDNISolone SOD SUCC 40 MG/ML VIAL IV SCH (04:36)
[2024-09-15 06:55] LABS: CALCIUM, SERUM 9.5 mg/dL (8.5-10.1); CREATININE 0.9 mg/dL (0.6-1.3); POTASSIUM 4.3 mmol/L (3.5-5.1)
[2024-09-15 06:56] LABS: BASOPHILS % (AUTO) 0.1 % (0.0-2.0); HEMATOCRIT 42 % (33-45); HEMOGLOBIN 13.8 g/dL (11.5-14.8); LYMPHOCYTES # (AUTO) 1.4 K/uL (0.8-4.8); LYMPHOCYTES % (AUTO) 13.6 % (20.0-44.0); MEAN CORPUSCULAR HEMOGLOBIN 29 PG (26.0-33.0); MEAN CORPUSCULAR HGB CONC 33 g/dl (31.0-36.0); MEAN CORPUSCULAR VOLUME 89 fL (82-100); MONOCYTES # (AUTO) 0.1 K/uL (0.1-1.30); MONOCYTES % (AUTO) 0.5 % (2.0-12.0); NEUTROPHILS # (AUTO) 8.7 K/uL (1.8-8.9); NEUTROPHILS % (AUTO) 85.8 % (43.0-81.0); PLATELET COUNT (AUTO) 300 K/uL (150-450); RED BLOOD CELL COUNT(AUTO) 4.72 MIL/uL (4.0-5.2); RED CELL DISTRIBUTION WIDTH 13.3 % (11.5-15.0); WHITE BLOOD COUNT (AUTO) 10.1 K/uL (4.3-11.0)
[2024-09-15] MEDS ORDERED: PANTOPRAZOLE 40 MG TABLET.DR PO SCH (07:30)
[2024-09-15] MEDS ORDERED: ROSU40TA23 PO (07:36)
[2024-09-15 08:10] VITALS: BP 118/68; TEMP 98.2; O2SAT 95
[2024-09-15] MEDS: FAMOTIDINE/PF INJ 20 MG/2 ML VIAL IV SCH (08:26)
[2024-09-15] MEDS: CLOPIDOGREL BISULFATE 75 MG TABLET PO SCH (08:26)
[2024-09-15] MEDS: busPIRone 5 MG TABLET PO SCH (08:26)
[2024-09-15] MEDS: EZETIMIBE 10 MG TABLET PO SCH (08:26)
[2024-09-15] MEDS: ENOXAPARIN SODIUM 40 MG/0.4 ML DISP.SYRIN SQ SCH (08:27)
[2024-09-15] MEDS ORDERED: ASPI-1169 PO (09:58)
[2024-09-15] MEDS ORDERED: CLOP75TA15 PO (09:58)
[2024-09-15 12:10] VITALS: BP 133/71; TEMP 98.4; O2SAT 95
[2024-09-15] MEDS ORDERED: SIMVASTATIN 20 MG TABLET PO SCH (22:00)
[2024-09-16] MEDS ORDERED: ASPIRIN EC 325 MG TABLET.DR PO SCH (09:00)
== END 2024-09-15 12:30 | disposition home health service (06) | DRG 69 ==
LOC: ER 19:18 → TELE1 21:59
PROVIDERS: ADMIT Student in an Organized Health Care Education/Training Program; ATTEND Internal Medicine
DX: G45.9 Transient cerebral ischemic attack, unspecified (principal); I69.354 Hemiplegia and hemiparesis following cerebral infarction affecting left non-dominant side; Z68.41 Body mass index [BMI] 40.0-44.9, adult; E11.9 Type 2 diabetes mellitus without complications; I10 Essential (primary) hypertension; E78.00 Pure hypercholesterolemia, unspecified; I25.10 Atherosclerotic heart disease of native coronary artery without angina pectoris; I27.20 Pulmonary hypertension, unspecified; Z90.49 Acquired absence of other specified parts of digestive tract; E89.2 Postprocedural hypoparathyroidism; Y83.8 Other surgical procedures as the cause of abnormal reaction of the patient, or of later complication, without mention of misadventure at the time of the procedure; Y92.9 Unspecified place or not applicable; Z79.899 Other long term (current) drug therapy; K21.9 Gastro-esophageal reflux disease without esophagitis; Z79.51 Long term (current) use of inhaled steroids; Z79.02 Long term (current) use of antithrombotics/antiplatelets; Z91.199 Patient's noncompliance with other medical treatment and regimen due to unspecified reason; E66.9 Obesity, unspecified; I70.0 Atherosclerosis of aorta; Z91.041 Radiographic dye allergy status
CPT/HCPCS: 36415; 70450-TC; 70496-TC; 70498-TC; 80048-TC; 80061-TC; 81001; 82962-TC; 85025-TC; 85730-TC; 87086-TC; 92526; 92611-TC; 93307-TC; 97112-TC; 97116-TC; 97530-TC; 97535-TC; G0378; J1200; J1308; J1650; J2919; J7050; Q9967

== ENCOUNTER 2024-12-10 10:48 | Emergency (ER) | payer MEDICARE, OTHER ==
[~2024-12-10] VITALS: Ht 165.1 cm; Wt 90.7 kg
[~2024-12-10 10:48] MED LIST changes: +ASPI-1169 PO; -EZET10TA16 PO; -ROSU10TA2 PO; +ROSU40TA23 PO; -TRAZ150T75 PO
[2024-12-10 11:10] LABS: APPEARANCE,URINE CLEAR (CLEAR); BLOOD, URINE Negative Ery/uL (NEGATIVE); LEUKOCYTE ESTERASE ,URINE Negative (NEGATIVE); NITRITE, URINE NEGATIVE (NEGATIVE); UGLUCOSE Negative (NEGATIVE)
[2024-12-10] MEDS: IV NS 0.9% 1,000 ML BAG IV ONE (11:15)
[2024-12-10 11:17] LABS: PLATELET COUNT (AUTO) 292 K/uL (150-450); RED BLOOD CELL COUNT(AUTO) 4.10 MIL/uL (4.0-5.2); RED CELL DISTRIBUTION WIDTH 13.9 % (11.5-15.0); WHITE BLOOD COUNT (AUTO) 6.4 K/uL (4.3-11.0)
[2024-12-10 11:28] LABS: CALCIUM, SERUM 9.4 mg/dL (8.5-10.1); CREATININE 0.9 mg/dL (0.6-1.3); SODIUM SERUM 135.0 mmol/L (136-145); UREA NITROGEN, BLOOD 15.0 mg/dL (7-18)
[2024-12-10 11:34] LABS: ASPARTATE AMINOTRANSFERASE 18.0 U/L (15-37); TOTAL PROTEIN, SERUM 7.4 g/dL (6.4-8.2)
[2024-12-10] MEDS ORDERED: FENTANYL PF 100MCG/2ML AMPUL ONE (13:01)
[2024-12-10] MEDS ORDERED: LIDOCAINE 5% (PATCH) 1 EA PATCH TP ONE (13:01)
[2024-12-10] MEDS ORDERED: ACETAMINOPHEN 325 MG TABLET ONE (13:01)
[2024-12-10] MEDS ORDERED: KETOROLAC TROMETHAMINE 15 MG/ML VIAL ONE (13:02)
[2024-12-10] MEDS: LIDOCAINE 5% (PATCH) 1 EA PATCH TP STA (13:07)
[2024-12-10] MEDS: ACETAMINOPHEN 325 MG TABLET PO ONE (13:08)
[2024-12-10] MEDS: KETOROLAC TROMETHAMINE 15 MG/ML VIAL IV ONE (13:08)
[2024-12-10] MEDS: FENTANYL PF 100MCG/2ML AMPUL IV ONE (13:09)
[2024-12-10] MEDS ORDERED: CYCL5TAB PO (13:15)
[2024-12-10] MEDS ORDERED: IBUP-1955 PO (13:15)
[2024-12-10] MEDS ORDERED: LIDO30AD10 TP (13:15)
[2024-12-10 13:23] VITALS: BP 136/77; TEMP 97.9; O2SAT 97
== END 2024-12-10 13:26 | disposition home or self-care (01) ==
LOC: ER 10:50
DX: M54.9 Dorsalgia, unspecified (principal); I10 Essential (primary) hypertension; E78.5 Hyperlipidemia, unspecified; Z79.02 Long term (current) use of antithrombotics/antiplatelets; Z79.82 Long term (current) use of aspirin; Z79.899 Other long term (current) drug therapy; Z86.73 Personal history of transient ischemic attack (TIA), and cerebral infarction without residual deficits; Z90.49 Acquired absence of other specified parts of digestive tract
CPT/HCPCS: 99285; 74176; 96374; 76705; 96361; 96375; 85025; 80048; 83690; 80076; 81003; 36415; J1885; J3010; J7030